=== PATIENT | female | born 1980 | race Caucasian/White ===

== ENCOUNTER 2023-01-06 09:24 | Emergency (ER) | payer MEDICAID, SELFPAY ==
[2023-01-06 09:24] VITALS: BP 100/77; PULSE 91; RESP 16; TEMP 36.3; O2SAT 95; BMI 26.4
--- NOTE | 2023-01-06 09:36 | ED.VIS.GI ---
HPI HPI - GI History of Present Illness Chief Complaint: Diarrhea Informant: patient Nausea/Vomiting/Emesis GI Symptom: Negative for Nausea or Vomiting Diarrhea/Melena/Hematochezia GI Symptom: Positive for Diarrhea; Negative for Melena or Hematochezia Onset: Yesterday Stool Quality: Positive for Watery Severity: Severe (More than 10 times per 24-hour) Associated Symptoms Associated Symptoms: Negative for Dysuria, Frequency, Hematuria or Urgency Narrative Narrative: Patient has had watery nonbloody diarrhea for the past 24-36 hours. She has been drinking fluids but states I feel dehydrated. She denies any abdominal pain. She has been having some tingling in her fingertips bilaterally on occasion. No weakness, no bowel or bladder dysfunction or back pain. No fevers or chills. She feels rundown, however. She denies any travel out of the area or suspicious food intake such as undercooked meats or raw seafood, she denies knowing anyone that she knows of with these symptoms lately, however there is a high prevalence of viral gastroenteritis in the area recently, anecdotally. [facility] Medical History (Updated 01/06/23 @ 11:[address] Christopher Booth MD) Anxiety Depression Home Medications sertraline 100 mg tablet 100 mg PO DAILY 01/06/23 [History Last Taken Unknown] Allergy/AdvReac Type Severity Reaction Status Date / Time amoxicillin [Amoxicillin] Allergy Rash, Verified 01/06/23 09:26 Swelling Social History Smoking Status: Current every day smoker tobacco type: cigarettes ROS ROS ED Constitutional Constitutional ED: Reports malaise; Denies chills or fever(s) Eyes Eyes: Denies change in vision or diplopia ENT ENT ED: Denies rhinorrhea or sore throat Cardiovascular Cardiovascular: Denies chest pain or palpitations Respiratory/Chest Respiratory/Chest: Denies cough or dyspnea Gastrointestinal Gastrointestinal: Reports diarrhea; Denies abdominal pain, hematochezia, melena, nausea or vomiting Genitourinary Genitourinary ED: Denies decreased urination, dysuria or hematuria Musculoskeletal Musculoskeletal: Denies back pain or neck pain Integumentary Denies abscess or rash Neurologic Neurologic: Reports paresthesias RUE (fingertips) and LUE (fingertips); Denies headache(s) or weakness Psychiatric Psychiatric: Reports anxiety; Denies suicidal thoughts EXAM Physical Exam Const Vital Signs: 01/06/23 09:24 Temperature 97.4 F L Temperature Source Temporal Pulse Rate 91 Respiratory Rate 16 Blood Pressure 100/77 Blood Pressure Mean 84 Pulse Ox 95 Oxygen Delivery Method Room Air Positive well nourished and well developed General Appearance ED: well developed and NAD HEENT Reports moist mucous membranes normocephalic and atraumatic Eyes PERRL and EOMs intact bilaterally Neck full ROM and supple Resp normal respiratory effort and clear to auscultation bilaterally Cardio regular rate, regular rhythm and no murmurs Rate: Negative for tachycardic GI non-distended GI Narrative: Tender without guarding or rebound in epigastrium and suprapubic area. No palpable masses. No distention. Otherwise benign abdomen, no right upper quadrant tenderness. Auscultation: normoactive bowel sounds Palpation: soft Back/Spine no CVA tenderness General Back: other FROM Extremity normal to inspection General Extremety ED: Negative for edema, pulses abnormal or tenderness General Extremity: Negative for edema or pulses abnormal Neuro oriented x3, CN's II-XII intact bilaterally and no sensory deficits noted Sensorium / Orientation: awake and alert Motor Exam: strength 5/5 throughout Psych Mood & Affect: anxious Skin no rashes or lesions noted and no wounds MDM MDM MDM Narrative Medical decision making narrative: Labs were obtained while we give the patient a liter of fluid IV and gave her some Imodium. No antibiotics recently, she has no other red flags for bacterial etiologies but she did have some diarrhea here in the ER for so I am sending it for an enteric bacterial panel to rule that out but I am comfortable with her being discharged home. I reviewed her labs, her bicarb is a little low likely due to loss from her diarrhea, that should self-resolved with oral hydration, her potassium is 3.4 and does not require emergent replacement. Stable for discharge, supportive care advised for what is likely viral etiology. Lab Data Attestation: I reviewed the patient's lab results. Labs: Laboratory Results - last 24 hr 01/06/23 01/06/23 09:45 09:45 WBC 6.1 RBC 5.05 Hgb 15.7 H Hct 46.5 MCV 92.1 MCH 31.1 MCHC 33.8 RDW Std Deviation 46.7 H RDW Coeff of Seamus 13.7 Plt Count 217 MPV 8.6 Immature Gran % (Auto) 0.700 Neut % (Auto) 76.8 H Lymph % (Auto) 11.3 L [place] % (Auto) 9.7 Eos % (Auto) 1.0 Baso % (Auto) 0.5 Absolute Neuts (auto) 4.7 Absolute Lymphs (auto) 0.69 L Nucleated RBC % 0 Sodium 133 L Potassium 3.4 L Chloride 107 Carbon Dioxide 19.0 L Anion Gap 7 BUN 9 Creatinine 0.88 Estim Creat Clear Calc 59.21 Est GFR (MDRD) Af Amer 90 Est GFR (MDRD) Non-Af 75 BUN/Creatinine Ratio 10.3 Glucose 105 Calcium 8.5 Total Bilirubin 0.70 AST 19 ALT 15 Alkaline Phosphatase 118 H Total Protein 8.0 Albumin 3.8 Globulin 4.2 Albumin/Globulin Ratio 0.9 Lipase 27 Discharge Plan Triage Chief Complaint: Diarrhea ED Provider: Christopher Booth Dx/Rx/DC Orders Clinical Impression: Enteritis Instructions: ED Diarrhea, Unknown Cause Prescriptions: No Action sertraline 100 mg tablet 100 mg PO DAILY Label Comments: TAKE 1 AND 1/2 TABLETS BY MOUTH ONCE DAILY Primary Care Provider: Nathaly Cruz Referrals: Nathaly Cruz MD [Primary Care Provider] - 3-5 Days if not improving (And for results of stool testing sent in the emergency room) Activity Restrictions/Additional Instructions: May continue taking Imodium as needed for diarrhea, stay well-hydrated even if it increases the amount of diarrhea you have Disposition Disposition: Home, Self Care
[2023-01-06] MEDS: Loperamide 2 MG Capsule 4 MG PO (09:50)
[2023-01-06] MEDS: 0.9% Normal Saline 1,000 ML 1000 ML IV (09:51)
[2023-01-06 09:52] LABS: Absolute Lymphocyte Count 0.69 X10^3/uL (0.83-4.51); Absolute Neutrophil Count 4.7 X10^3/uL (2.0-7.7); Basophil# 0.03 X10^3/uL; Basophil% 0.5 % (0-1); Eosinophil# 0.06 X10^3/uL; Hematocrit 46.5 % (37-47); Hemoglobin 15.7 g/dL (12.0-15.0); Lymphocyte # 0.69 X10^3/ul (0.83-4.51); Lymphocyte % 11.3 % (19-41); Mean Corp Hgb Conc 33.8 g/dL (32-36); Mean Corpuscular Hgb 31.1 pg (27.0-32.0); Mean Corpuscular Volume 92.1 fL (81-99); Mean Platelet Vol. 8.6 fl (6.2-12.0); Monocyte# 0.59 X10^3/uL; Monocyte% 9.7 % (0-10); NRBC Flagged by Analyzer 0 % (0-5); Neutrophil # 4.67 X10^3/uL (2.7-7.7); Neutrophil % 76.8 % (47-70); Platelet Count 217 K/mm3 (150-450); RBC Distribution Width CV 13.7 % (11.6-14.6); RBC Distribution Width SD 46.7 fl (35.1-43.9); Red Blood Count 5.05 M/mm3 (4.2-5.4); White Blood Count 6.1 K/mm3 (4.4-11.0)
[2023-01-06 10:10] LABS: ALB/GLOB Ratio 0.9 RATIO (0.9-2.4); AST(SGOT) 19 U/L (15-37); Alanine Aminotransfer ALT/SGPT 15 U/L (13-56); Albumin, Serum 3.8 g/dL (3.2-5.0); Alkaline Phosphatase 118 U/L (45-117); Anion Gap 7 (5-15); BUN 9 mg/dL (7-18); BUN/Creat Ratio 10.3 RATIO (10-20); Calcium,Total 8.5 mg/dL (8.5-10.1); Chloride 107 mmol/L (98-107); Creatinine, Serum 0.88 mg/dL (0.55-1.02); EST Glomerular Filtration Rate 75 mL/min (>60); Est Glom Filt Rate - Afr Amer 90 mL/min (>60); Estimated Creatinine Clearance 59.21 ml/min; Globulin 4.2 g/dL (2.2-4.2); Glucose 105 mg/dL (74-106); Lipase 27 U/L (13-75); Potassium 3.4 mmol/L (3.5-5.1); Sodium Level 133 mmol/L (136-145)
[2023-01-06] MEDS: Acetaminophen 500 MG Tablet 1000 MG PO (11:48)
[2023-01-06 11:50] VITALS: BP 109/70; PULSE 90; RESP 16; O2SAT 98
--- NOTE | 2023-01-06 16:51 | ED.RN ---
THIS RN ATTEMPTED PHONE CALL TO PT TO INFORM OF POSITIVE STOOL RESULTS. PT DID NOT ANSWER, THIS RN LEFT A VOICEMAIL WITH CALL BACK NUMBER.
--- NOTE | 2023-01-06 17:46 | ED.RN ---
PT CALLS BACK TO ED, GIVES CORRECT PT IDENTIFIERS. PT INFORMED OF STOOL RESULTS. PT VERBALIZES UNDERSTANDING. EDUCATED BY THIS RN THAT TX PLAN FROM DISCHARGE DOES NOT CHANGE. EDUCATED TO FOLLOW UP WITH PCP.
== END 2023-01-06 11:53 | disposition home or self-care (01) ==
PROVIDERS: Emergency Provider Emergency Medicine; PCP Internal Medicine; Referring Provider Emergency Medicine; Visit Provider Emergency Medicine
DX: K52.9 Noninfective gastroenteritis and colitis, unspecified (principal); F17.210 Nicotine dependence, cigarettes, uncomplicated; F32.9 Major depressive disorder, single episode, unspecified; F41.9 Anxiety disorder, unspecified
CPT/HCPCS: 80053; 83690; 85025; 87506; 99284; J7030; A4216